=== PATIENT | female | born 1985 | race Caucasian/White ===

== ENCOUNTER 2017-04-24 10:53 | Emergency (ER) | payer BC ==
--- NOTE | 2017-04-24 11:04 | EDM.PDOC ---
ED HPI GENERAL MEDICAL PROBLEM - General Stated Complaint: 8 WEEKS CAN NOT STOP THROWING UP Time Seen by Provider: 04/24/17 10:59 - History of Present Illness INITIAL COMMENTS - FREE TEXT/NARRATIVE: HISTORY AND PHYSICAL: History of present illness: Patient 31-year-old female who is who is approximately 8 weeks presents with a concern of hyperemesis she's had this with all of her pregnancies she has had one visit prior and was prescribed Zofran she is unable keep this down there's been no abdominal pain no vaginal discharge bleeding or other concern Review of systems: As per history of present illness and below otherwise all systems reviewed and negative. Past medical history: As per history of present illness and as reviewed below otherwise noncontributory. Surgical history: As per history of present illness and as reviewed below otherwise noncontributory. Social history: No reported history of drug or alcohol abuse. Family history: As per history of present illness and as reviewed below otherwise noncontributory. Physical exam: HEENT: Atraumatic, normocephalic, pupils reactive, negative for conjunctival pallor or scleral icterus, mucous membranes dry, throat clear, neck supple, nontender, trachea midline. Lungs: Clear to auscultation, breath sounds equal bilaterally, chest nontender. Heart: S1S2, regular, negative for clicks, rubs, or JVD. Abdomen: Soft, nondistended, nontender. Negative for masses or hepatosplenomegaly. Negative for costovertebral tenderness. Pelvis: Stable nontender. Genitourinary: Deferred. Rectal: Deferred. Extremities: Atraumatic, negative for cords or calf pain. Neurovascular unremarkable. Neuro: Awake, alert, oriented. Cranial nerves II through XII unremarkable. Cerebellum unremarkable. Motor and sensory unremarkable throughout. Exam nonfocal. Diagnostics: CBC CMP Therapeutics: Normal saline 1 L bolus Zofran 4 mg IV Impression: #1 hyperemesis gravidarum Definitive disposition and diagnosis as appropriate pending reevaluation and review of above. - Related Data Allergies Allergy/AdvReac Type Severity Reaction Status Date / Time No Known Allergies Allergy Verified 04/24/17 11:01 Home Meds: Home Meds Levothyroxine 75 mcg PO ACBREAKFAST 04/24/17 [History] Social & Family History - Tobacco Use Smoking Status *Q: Never Smoker - Recreational Drug Use Recreational Drug Use: No ED ROS GENERAL - Review of Systems Review Of Systems: ROS reveals no pertinent complaints other than HPI. ED EXAM, GENERAL - Physical Exam Exam: See Below (See dictation) Course - Vital Signs Last Recorded V/S: Last Vital Signs Temp 35.7 C 04/24/17 11:01 Pulse 66 04/24/17 12:20 Resp 18 04/24/17 12:20 BP 99/57 L 04/24/17 12:20 Pulse Ox 100 04/24/17 12:20 - Orders/Labs/Meds Labs: Laboratory Tests 04/24/17 04/24/17 Range/Units 11:12 11:12 WBC 8.61 (4.0-11.0) K/uL RBC 4.99 (4.30-5.90) M/uL Hgb 14.4 (12.0-16.0) g/dL Hct 40.7 (36.0-46.0) % MCV 81.6 (80.0-98.0) fL MCH 28.9 (27.0-32.0) pg MCHC 35.4 (31.0-37.0) g/dL RDW Std Deviation 43.0 (28.0-62.0) fl RDW Coeff of Nataly 15 (11.0-15.0) % Plt Count 248 (150-400) K/uL MPV 10.20 (7.40-12.00) fL Neut % (Auto) 65.9 (48.0-80.0) % Lymph % (Auto) 26.1 (16.0-40.0) % Hernando % (Auto) 7.1 (0.0-15.0) % Eos % (Auto) 0.7 (0.0-7.0) % Baso % (Auto) 0.2 (0.0-1.5) % Neut # (Auto) 5.7 (1.4-5.7) K/uL Lymph # (Auto) 2.3 (0.6-2.4) K/uL Hernando # (Auto) 0.6 (0.0-0.8) K/uL Eos # (Auto) 0.1 (0.0-0.7) K/uL Baso # (Auto) 0.0 (0.0-0.1) K/uL Nucleated RBC % 0.0 /100WBC Nucleated RBCs # 0 K/uL Sodium 136 (136-146) mmol/L Potassium 4.1 (3.5-5.1) mmol/L Chloride 105 (98-110) mmol/L Carbon Dioxide 22 (21-31) mmol/L BUN 15 (6.0-23.0) mg/dL Creatinine 0.9 (0.6-1.5) mg/dL Est Cr Clr Drug Dosing 88.88 mL/min Estimated GFR (MDRD) > 60.0 ml/min Glucose 87 (60-110) mg/dL Calcium 9.3 (8.8-10.8) mg/dL Total Bilirubin 1.2 (0.1-1.5) mg/dL AST 16 (5-40) IU/L ALT 15 (8-54) IU/L Alkaline Phosphatase 57 (40-150) Total Protein 8.0 (6.0-8.0) g/dL Albumin 4.4 (3.5-5.0) g/dL Globulin 3.6 H (2.0-3.5) g/dL Albumin/Globulin Ratio 1.2 L (1.3-2.8) Meds: Medications Discontinued Medications Generic Name Dose Route Start Last Admin Trade Name Freq PRN Reason Stop Dose Admin Sodium Chloride 1,000 mls @ 999 mls/hr 04/24/17 11:07 04/24/17 11:12 Normal Saline IV 04/24/17 12:07 999 mls/hr .Bolus ONE Administration Ondansetron HCl 4 mg 04/24/17 11:07 04/24/17 11:17 Zofran IVPUSH 04/24/17 11:08 4 mg ONETIME ONE Administration Departure - Departure Time of Disposition: 12:00 Disposition: Home, Self-Care 01 Clinical Impression: hyperemesis gravidarum - Discharge Information Instructions: First Trimester of , [id number], Morning Sickness, [id number] Referrals: Maricel Sam [facility] [Ordering Only Provider] - Watson Mar MD [Physician] - Salvador Mason [Primary Care Provider] - Forms: ED Department Discharge
[2017-04-24] MEDS ORDERED: Sodium Chloride 0.9% 1,000 ML IV ONE (11:07)
[2017-04-24] MEDS ORDERED: Ondansetron 4 MG/2 ML SDV IVPUSH ONE (11:07)
[2017-04-24 11:51] LABS: CHLORIDE,CL 105 mmol/L (98-110); SODIUM,NA 136 mmol/L (136-146)
[2017-04-24 12:50] VITALS: BP 99/57
== END 2017-04-24 12:20 | disposition home or self-care (01) ==
LOC: MW.ED 10:53
DX: O21.0 Mild hyperemesis gravidarum (principal); Z3A.01 Less than 8 weeks gestation of pregnancy
CPT/HCPCS: 36415; 80053; 85025; 96361; 96374; 99283; J2405; J7040

== ENCOUNTER 2017-05-22 22:29 | Emergency (ER) | payer BC ==
--- NOTE | 2017-05-22 23:18 | EDM.PDOC ---
ED HPI GENERAL MEDICAL PROBLEM - General Chief Complaint: Back Pain or Injury Stated Complaint: PT HURT BACK AND 12WKS Time Seen by Provider: 05/22/17 23:03 - History of Present Illness INITIAL COMMENTS - FREE TEXT/NARRATIVE: HISTORY AND PHYSICAL: History of present illness: [The patient is a 31-year-old female who is a 4 and is currently 12 weeks and is following with [facility] and presents with pain in her tailbone that started this morning when she woke up. The patient denies any trauma to the area and has been eating passing stool and urinating without difficulty. She has no abdominal pain. The patient has had nausea and vomiting with the which is not new or different. She denies any urinary complaints and no neurosensory changes in her legs or weakness in her legs. She says that because the nausea and vomiting she has not been as active as usual and she thought that maybe because she was laying in bed a lot as may have triggered the pain. She's only been using Tylenol for the pain. The pain does not radiate to her legs and does not go right or left but sits in the middle at her tailbone only. Review of systems: As per history of present illness and below otherwise all systems reviewed and negative. Past medical history: As per history of present illness and as reviewed below otherwise noncontributory. Surgical history: As per history of present illness and as reviewed below otherwise noncontributory. Social history: No reported history of drug or alcohol abuse. Family history: As per history of present illness and as reviewed below otherwise noncontributory. Physical exam: Gen.: Well-developed well-nourished female who moves slowly in the ED but is nontoxic HEENT: Atraumatic, normocephalic, negative for conjunctival pallor or scleral icterus, mucous membranes moist, throat clear, neck supple, nontender, trachea midline. Lungs: Clear to auscultation, breath sounds equal bilaterally, chest nontender. Heart: S1S2, regular, negative for clicks, rubs, or JVD. Abdomen: Soft, nondistended, nontender. Negative for masses or hepatosplenomegaly. Negative for costovertebral tenderness. Pelvis: Stable nontender. Genitourinary: Deferred. Rectal: Formal rectal exam was deferred but the coccyx area was evaluated and there is no evidence of any erythema fluctuance or fullness appreciated at palpation Extremities: Atraumatic, negative for cords or calf pain. Neurovascular unremarkable. Full range of motion without any defects or deficits Neuro: Awake, alert, oriented. Cranial nerves II through XII unremarkable. Cerebellum unremarkable. Motor and sensory unremarkable throughout. Exam nonfocal. Dorsi and plantar flexion is intact 5/5 inclusive of the great toe as his inversion and eversion of the feet. Back: There are no midline step-offs tenderness or defects the thoracic or lumbar spine no CVA tenderness and there is reproducible tenderness at the coccyx area without fullness fluctuance redness or swelling. Diagnostics: [] Therapeutics: Morphine IM I discussed the case with Dr. Mcadams at 16/01/18. She recommends one dose of pain medication, morphine, and her office will follow-up as this may be coccydynia Impression: Coccyx pain and Definitive disposition and diagnosis as appropriate pending reevaluation and review of above. lower mid back/tailbone Pain Score (Numeric/FACES): 6 - Related Data Allergies Allergy/AdvReac Type Severity Reaction Status Date / Time No Known Allergies Allergy Verified 05/22/17 22:42 Home Meds: Home Meds Doxylamine Succinate [Unisom] 25 mg PO 05/22/17 [History] Ondansetron [Zofran ODT] 4 mg PO ASDIRECTED 05/22/17 [History] Past Medical History Cardiovascular History: Reports: None Respiratory History: Reports: None Neurological History: Reports: Migraines Psychiatric History: Reports: None Endocrine/Metabolic History: Reports: Hypothyroidism Dermatologic History: Reports: None - Infectious Disease History Infectious Disease History: Reports: Chicken Pox - Past Surgical History HEENT Surgical History: Reports: Tonsillectomy GI Surgical History: Reports: Cholecystectomy Female Surgical History: Reports: Lithotripsy/ESWL Social & Family History - Family History Family Medical History: Noncontributory - Tobacco Use Smoking Status *Q: Never Smoker - Recreational Drug Use Recreational Drug Use: No ED ROS GENERAL - Review of Systems Review Of Systems: ROS reveals no pertinent complaints other than HPI. ED EXAM, GENERAL - Physical Exam Exam: See Below (See dictation) Course - Vital Signs Last Recorded V/S: Last Vital Signs Temp 36.3 C 05/22/17 22:43 Pulse 86 05/22/17 22:43 Resp 14 05/22/17 22:43 BP 126/71 05/22/17 22:43 Pulse Ox 97 05/22/17 22:43 Departure - Departure Time of Disposition: 23:25 Disposition: Home, Self-Care 01 Condition: Fair Clinical Impression: Coccydynia - Discharge Information Forms: ED Department Discharge Additional Instructions: The following information is given to patients seen in the emergency department who are being discharged to home. This information is to outline your options for follow-up care. We provide all patients seen in our emergency department with a follow-up referral. The need for follow-up, as well as the timing and circumstances, are variable depending upon the specifics of your emergency department visit. If you don't have a primary care physician on staff, we will provide you with a referral. We always advise you to contact your personal physician following an emergency department visit to inform them of the circumstance of the visit and for follow-up with them and/or the need for any referrals to a consulting specialist. The emergency department will also refer you to a specialist when appropriate. This referral assures that you have the opportunity for followup care with a specialist. All of these measure are taken in an effort to provide you with optimal care, which includes your followup. Under all circumstances we always encourage you to contact your private physician who remains a resource for coordinating your care. When calling for followup care, please make the office aware that this follow-up is from your recent emergency room visit. If for any reason you are refused follow-up, please contact the [facility] emergency department at and ask to speak to the emergency department charge nurse. [facility] [address] [place] [id number] Please call the clinic tomorrow to be reevaluated and possibly scheduled for physical therapy. Tinea Tylenol use. Return to ER as needed and as discussed
[2017-05-22] MEDS ORDERED: Morphine 2 MG/ML Syringe IM ONE (23:26)
[2017-05-23 04:54] VITALS: BP 132/73
== END 2017-05-23 00:08 | disposition home or self-care (01) ==
LOC: MW.ED 22:29
DX: O99.89 Other specified diseases and conditions complicating pregnancy, childbirth and the puerperium (principal); M53.3 Sacrococcygeal disorders, not elsewhere classified; E03.9 Hypothyroidism, unspecified; Z90.49 Acquired absence of other specified parts of digestive tract; Z98.890 Other specified postprocedural states; Z3A.12 12 weeks gestation of pregnancy
CPT/HCPCS: 96372; 99283; J2270

== ENCOUNTER 2017-11-29 10:50 | Inpatient (IN) | payer BC ==
[2017-11-29] MEDS ORDERED: Butorphanol 1 MG/ML SDV IVPUSH PRN (11:24)
[2017-11-29] MEDS ORDERED: Sodium Chloride 0.9% 2.5 ML Syringe FLUSH PRN (11:24)
[2017-11-29] MEDS ORDERED: Methylergonovine 0.2 MG/1 ML Amp IM PRN (11:24)
[2017-11-29] MEDS ORDERED: Misoprostol 200 MCG Tab PO PRN (11:24)
[2017-11-29] MEDS ORDERED: Lidocaine 1% 50 ML MDV INJECT PRN (11:24)
[2017-11-29] MEDS ORDERED: Water For Irrigation,Sterile 1,000 ML Container IRR PRN (11:24)
[2017-11-29] MEDS ORDERED: Carboprost Tromethamine 250 MCG/1 ML Amp IM PRN (11:24)
[2017-11-29] MEDS ORDERED: Nalbuphine 10 MG/1 ML Vial IVPUSH PRN (11:24)
[2017-11-29] MEDS ORDERED: Sodium Chloride 0.9% 10 ML Syringe FLUSH PRN (11:24)
[2017-11-29] MEDS ORDERED: Terbutaline 1 MG/ML SDV SUBCUT PRN (11:24)
[2017-11-29] MEDS ORDERED: Oxytocin/0.9 % Sodium Chloride 30 UNIT/500 ML BAG IV SCH ×2 (11:30)
[2017-11-29] MEDS: Lactated Ringers 1,000 ML IV SCH ×2 (11:42→13:59)
[2017-11-29] MEDS ORDERED: fentaNYL 100 MCG/2 ML SDV ONE (13:18)
[2017-11-29] MEDS ORDERED: Ropivacaine 0.2% 2 MG/ML 20 ML SDV ONE (13:18)
--- NOTE | 2017-11-29 13:55 | PCM.PREANE ---
Preanesthetic Assessment - Anesthesia/Transfusion/Family Hx Anesthesia History: Prior Anesthesia Without Reaction Family History of Anesthesia Reaction: No Transfusion History: No Prior Transfusion(s) - Review of Systems General: No Symptoms Pulmonary: No Symptoms Cardiovascular: No Symptoms Gastrointestinal: No Symptoms Neurological: No Symptoms Other: Reports: None - Physical Assessment NPO Status Date: 11/29/17 NPO Status Time: 13:52 (sips/chips) Pulse: 90 Blood Pressure: 127/65 Temperature: 97.9 F Height: 5 ft 7 in Weight: 227 lb ASA Class: 2 Mental Status: Alert & Oriented x3 Airway Class: Mallampati = 2 Dentition: Reports: Normal Dentition Thyro-Mental Finger Breadths: 3 Mouth Opening Finger Breadths: 3 ROM/Head Extension: Full Lungs: Clear to Auscultation, Normal Respiratory Effort Cardiovascular: Regular Rate, Regular Rhythm - Lab Values: Laboratory Last Values WBC 9.30 K/uL (4.0-11.0) 11/29/17 11:38 RBC 4.25 M/uL (4.30-5.90) L 11/29/17 11:38 Hgb 12.8 g/dL (12.0-16.0) 11/29/17 11:38 Hct 36.2 % (36.0-46.0) 11/29/17 11:38 MCV 85.2 fL (80.0-98.0) 11/29/17 11:38 MCH 30.1 pg (27.0-32.0) 11/29/17 11:38 MCHC 35.4 g/dL (31.0-37.0) 11/29/17 11:38 RDW Std Deviation 52.1 fl (28.0-62.0) 11/29/17 11:38 RDW Coeff of Nataly 17 % (11.0-15.0) H 11/29/17 11:38 Plt Count 223 K/uL (150-400) 11/29/17 11:38 MPV 11.00 fL (7.40-12.00) 11/29/17 11:38 Nucleated RBC % 0.0 /100WBC 11/29/17 11:38 Nucleated RBCs # 0 K/uL 11/29/17 11:38 Blood Type O NEGATIVE 11/29/17 11:38 Antibody Screen NEGATIVE 11/29/17 11:38 - Allergies Allergies/Adverse Reactions: Allergies Allergy/AdvReac Type Severity Reaction Status Date / Time No Known Allergies Allergy Verified 11/03/17 14:45 - Blood Blood Available: No - Anesthesia Plan Free Text/Narrative:: Labor Epidural - induction for polyhydramnios - Acknowledgements Anesthesia Type Planned: Epidural Pt an Appropriate Candidate for the Planned Anesthesia: Yes Alternatives and Risks of Anesthesia Discussed w Pt/Guardian: Yes Pt/Guardian Understands and Agrees with Anesthesia Plan: Yes PreAnesthesia Questionnaire Cardiovascular History: Reports: None Respiratory History: Reports: None Genitourinary History: Reports: Renal Calculus 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: Neurological History: Reports: Migraines Psychiatric History: Reports: None Endocrine/Metabolic History: Reports: Hypothyroidism (not currently on medication) Dermatologic History: Reports: None - Infectious Disease History Infectious Disease History: Reports: Chicken Pox - Past Surgical History HEENT Surgical History: Reports: Tonsillectomy GI Surgical History: Reports: Cholecystectomy Female Surgical History: Reports: Lithotripsy/ESWL - SUBSTANCE USE Smoking Status *Q: Never Smoker Recreational Drug Use History: No - HOME MEDS Home Medications: Home Meds Doxylamine Succinate [Unisom] 25 mg PO 05/22/17 [History] Ondansetron [Zofran ODT] 4 mg PO ASDIRECTED 05/22/17 [History] Vit W-Ca,Fe,FA(<1 mg) [ Vitamins] 10/04/17 [History] - CURRENT (IN HOUSE) MEDS Current Meds: Current Medications Butorphanol Tartrate (Stadol) 1 mg IVPUSH Q1H PRN PRN Reason: Pain Carboprost Tromethamine (Hemabate Ds) 250 mcg IM ASDIRECTED PRN PRN Reason: Post Hemorrhage Lactated Ringer's (Ringers, Lactated) 1,000 mls @ 150 mls/hr IV ASDIRECTED BRYNN Last Admin: 11/29/17 11:42 Dose: 150 mls/hr Oxytocin/Sodium Chloride (Oxytocin 30 Unit/500 Ml-Ns) 30 unit in 500 mls @ 2 mls/hr IV TITRATE BRYNN; 2 MUNITS/MIN PRN Reason: Protocol Last Titration: 11/29/17 12:48 Dose: 6 munits/min, 6 mls/hr Oxytocin/Sodium Chloride (Oxytocin 30 Unit/500 Ml-Ns) 30 unit in 500 mls @ 999 mls/hr IV TITRATE BRYNN Lidocaine HCl (Xylocaine 1%) 50 ml INJECT .ONCE PRN PRN Reason: Laceration repair Methylergonovine Maleate (Methergine) 0.2 mg IM ASDIRECTED PRN PRN Reason: Post Hemorrhage Misoprostol (Cytotec) 200 mcg PO .ONCE PRN PRN Reason: Post Hemorrhage Nalbuphine HCl (Nubain) 10 mg IVPUSH Q1H PRN PRN Reason: Pain (severe 7-10) Sodium Chloride (Saline Flush) 10 ml FLUSH ASDIRECTED PRN PRN Reason: Keep Vein Open Sodium Chloride (Saline Flush) 2.5 ml FLUSH ASDIRECTED PRN PRN Reason: Keep Vein Open Sterile Water (Sterile Water For Irrigation) 1,000 ml IRR ASDIRECTED PRN PRN Reason: delivery Terbutaline Sulfate (Brethine) 0.25 mg SUBCUT ASDIRECTED PRN PRN Reason: Tacysystole Discontinued Medications Fentanyl (Sublimaze) Confirm Administered Dose 100 mcg .ROUTE .STK-MED ONE Stop: 11/29/17 13:19 Ropivacaine (Naropin 0.2%) Confirm Administered Dose 20 ml .ROUTE .STK-MED ONE Stop: 11/29/17 13:19
[2017-11-29] MEDS ORDERED: oxyCODONE 5 MG Tab PO PRN (15:32)
[2017-11-29] MEDS ORDERED: Bisacodyl 10 MG Supp RECTAL PRN (15:32)
[2017-11-29] MEDS ORDERED: Witch Hazel Medicated Pads 40/Jar TOP PRN (15:32)
[2017-11-29] MEDS ORDERED: Ibuprofen 400 MG Tab PO PRN (15:32)
[2017-11-29] MEDS ORDERED: Benzocaine/Menthol 20%-0.5% Spray 78 GM Cannister TOP PRN (15:32)
[2017-11-29] MEDS ORDERED: Lanolin 100% Cream 7 GM Tube TOP PRN (15:32)
[2017-11-29] MEDS ORDERED: Ibuprofen 800 MG Tab PO PRN (15:32)
[2017-11-29] MEDS ORDERED: Docusate Sodium 100 MG Cap PO PRN (15:32)
[2017-11-29] MEDS ORDERED: Acetaminophen 500 MG Tab PO PRN ×2 (15:32)
--- NOTE | 2017-11-29 18:09 | PCM48HPAN ---
Post Anesthesia Note - EVALUATION WITHIN 48HRS OF ANESTHETIC Vital Signs in Normal Range: Yes Patient Participated in Evaluation: Yes Respiratory Function Stable: Yes Airway Patent: Yes Cardiovascular Function Stable: Yes Hydration Status Stable: Yes Pain Control Satisfactory: Yes Nausea and Vomiting Control Satisfactory: Yes Mental Status Recovered: Yes - COMMENTS/OBSERVATIONS Free Text/Narrative:: No anesthesia complications
--- NOTE | 2017-11-29 23:47 | OR ---
SURGEON: Anita Wan MD DATE OF PROCEDURE: 11/29/2017 PREOPERATIVE DIAGNOSES: 1. Intrauterine at 39 weeks and 1 day. 2. Polyhydramnios. POSTOPERATIVE DIAGNOSES: 1. Intrauterine at 39 weeks and 1 day. 2. Polyhydramnios. 3. Delivered. PROCEDURE: Spontaneous vaginal delivery. ANESTHESIA: Epidural. ESTIMATED BLOOD LOSS: 200 mL. COMPLICATIONS: None. DISPOSITION: Mother and baby stable in Labor and Delivery room, bonding. FINDINGS: Male infant, 3330grams, score 8 and 9 at 1 and 5 minutes respectively. Grossly normal placenta with 3-vessel cord. Intact perineum. BRIEF HISTORY: Diana is a 31-year-old G4, P3, who was admitted this morning at 39 weeks and 1 day for induction of labor due to polyhydramnios. Routine evaluations/ investigations and surveillance for polyhydramnios were normal. GBS negative. On admission, she was 4 cm dilated, 60% effaced, station -3. Oxytocin infusion was commenced for induction of labor. Two hours later, she was still the same and artificial rupture of membranes was performed with copious amount of clear amniotic fluid noted. She then received epidural for pain management. Within 2 hours of artificial rupture of membranes, she became fully dilated and commenced active pushing. She pushed quite well and over the next 2 contractions brought the baby's head down to a +4 station and was set up for delivery in modified dorsal lithotomy position. PROCEDURE IN DETAIL: She had a spontaneous vaginal delivery of a live male in direct occipital anterior position, clear amniotic fluid at delivery, loose nuchal cord which was easily reduced. Anterior and posterior shoulders and the rest of the baby were delivered without difficulty. Baby was vigorous and cried spontaneously at . The baby was then delivered onto the maternal abdomen with the nursery nurse attending to him. Delayed cord clamping was performed, and the cord was subsequently cut by the father of the baby. With the delivery of the , Oxytocin was converted to titration for active management of third stage of labor. Cord blood and gas samples were obtained. The placenta was then delivered by controlled cord traction appeared to be complete and intact. Vigorous uterine massage was performed, and the uterus was found to be well contracted below the umbilicus. Examination of the perineum revealed no lacerations. The patient tolerated the procedure well. Sponge, instrument, and needle counts were correct at the end of the delivery. ADUMVIV / CECIL /[id number] MTDD
--- NOTE | 2017-11-30 07:43 | PCM.PNPP ---
- General Info Date of Service: 11/30/17 Functional Status: Reports: Pain Controlled, Tolerating Diet, Ambulating, Urinating - Review of Systems General: Denies: Fever, Fatigue, Chills HEENT: Denies: Headaches Pulmonary: Denies: Shortness of Breath, Pleuritic Chest Pain, Cough Cardiovascular: Denies: Chest Pain, Palpitations, Dyspnea on Exertion Gastrointestinal: Denies: Abdominal Pain Genitourinary: Denies: Dysuria, Incontinence, Retention Neurological: Denies: Headache Psychiatric: Denies: Confusion, Depression, Mood Lability, Anxiety - General Info Date of Service: 11/30/17 - Patient Data Vital Signs - Most Recent: Last Vital Signs Temp 36.6 C 11/29/17 13:55 Pulse 90 11/29/17 13:55 Resp BP 127/65 11/29/17 13:55 Pulse Ox Weight - Most Recent: 227 lb I&O - Last 24 Hours: Intake & Output 11/29/17 11/30/17 11/30/17 22:59 06:59 14:59 Intake Total 2 Balance 2 Lab Results - Last 24 Hours: Laboratory Results - last 24 hr 11/28/17 11/29/17 11/29/17 Range/Units 15:16 11:38 11:38 WBC 9.30 (4.0-11.0) K/uL RBC 4.25 L (4.30-5.90) M/uL Hgb 12.8 (12.0-16.0) g/dL Hct 36.2 (36.0-46.0) % MCV 85.2 (80.0-98.0) fL MCH 30.1 (27.0-32.0) pg MCHC 35.4 (31.0-37.0) g/dL RDW Std Deviation 52.1 (28.0-62.0) fl RDW Coeff of Nataly 17 H (11.0-15.0) % Plt Count 223 (150-400) K/uL MPV 11.00 (7.40-12.00) fL Nucleated RBC % 0.0 /100WBC Nucleated RBCs # 0 K/uL Cord ABG pH 7.272 (7.18-7.38) Cord ABG Base Excess -6 (-10--2) Cord VBG pH 7.401 (7.25-7.45) Cord VBG Base Excess -6 (-10--2) Blood Type O NEGATIVE Antibody Screen NEGATIVE Screen (NEGATIVE) RhIG Candidate? Rhogam Indicated 11/29/17 11/30/17 Range/Units 17:23 04:33 WBC (4.0-11.0) K/uL RBC (4.30-5.90) M/uL Hgb 11.1 L (12.0-16.0) g/dL Hct 32.2 L (36.0-46.0) % MCV (80.0-98.0) fL MCH (27.0-32.0) pg MCHC (31.0-37.0) g/dL RDW Std Deviation (28.0-62.0) fl RDW Coeff of Nataly (11.0-15.0) % Plt Count (150-400) K/uL MPV (7.40-12.00) fL Nucleated RBC % /100WBC Nucleated RBCs # K/uL Cord ABG pH (7.18-7.38) Cord ABG Base Excess (-10--2) Cord VBG pH (7.25-7.45) Cord VBG Base Excess (-10--2) Blood Type Antibody Screen Screen NEGATIVE (NEGATIVE) RhIG Candidate? YES Rhogam Indicated YES, BABY RH POS H Med Orders - Current: Current Medications Acetaminophen (Tylenol Extra Strength) 500 mg PO Q4H PRN PRN Reason: Pain Acetaminophen (Tylenol Extra Strength) 1,000 mg PO Q4H PRN PRN Reason: Pain Benzocaine/Menthol (Dermoplast Pain Relief 20%-0.5% [place]) 78 gm TOP ASDIRECTED PRN PRN Reason: Perineal Comfort Measure Bisacodyl (Dulcolax) 10 mg RECTAL .ONCE PRN PRN Reason: Constipation Docusate Sodium (Colace) 100 mg PO BID PRN PRN Reason: Constipation Emollient Ointment (Lansinoh Hpa) 0 gm TOP ASDIRECTED PRN PRN Reason: Sore Nipples Ibuprofen (Motrin) 400 mg PO Q4H PRN PRN Reason: Pain Ibuprofen (Motrin) 800 mg PO Q6H PRN PRN Reason: Pain Oxycodone HCl (Oxycodone) 5 mg PO Q2H PRN PRN Reason: Pain Witch Khal[place] (Tucks) 1 pad TOP ASDIRECTED PRN PRN Reason: comfort care Discontinued Medications Butorphanol Tartrate (Stadol) 1 mg IVPUSH Q1H PRN PRN Reason: Pain Carboprost Tromethamine (Hemabate Ds) 250 mcg IM ASDIRECTED PRN PRN Reason: Post Hemorrhage Fentanyl (Sublimaze) Confirm Administered Dose 100 mcg .ROUTE .[employer] ONE Stop: 11/29/17 13:19 Lactated Ringer's (Ringers, Lactated) 1,000 mls @ 150 mls/hr IV ASDIRECTED BRYNN Last Admin: 11/29/17 13:59 Dose: 999 mls/hr Oxytocin/Sodium Chloride (Oxytocin 30 Unit/500 Ml-Ns) 30 unit in 500 mls @ 2 mls/hr IV TITRATE BRYNN; 2 MUNITS/MIN PRN Reason: Protocol Last Titration: 11/29/17 15:20 Dose: 500 munits/min, 500 mls/hr Oxytocin/Sodium Chloride (Oxytocin 30 Unit/500 Ml-Ns) 30 unit in 500 mls @ 999 mls/hr IV TITRATE BRYNN Lidocaine HCl (Xylocaine 1%) 50 ml INJECT .ONCE PRN PRN Reason: Laceration repair Methylergonovine Maleate (Methergine) 0.2 mg IM ASDIRECTED PRN PRN Reason: Post Hemorrhage Misoprostol (Cytotec) 200 mcg PO .ONCE PRN PRN Reason: Post Hemorrhage Nalbuphine HCl (Nubain) 10 mg IVPUSH Q1H PRN PRN Reason: Pain (severe 7-10) Ropivacaine (Naropin 0.2%) Confirm Administered Dose 20 ml .ROUTE .[employer] ONE Stop: 11/29/17 13:19 Sodium Chloride (Saline Flush) 10 ml FLUSH ASDIRECTED PRN PRN Reason: Keep Vein Open Sodium Chloride (Saline Flush) 2.5 ml FLUSH ASDIRECTED PRN PRN Reason: Keep Vein Open Sterile Water (Sterile Water For Irrigation) 1,000 ml IRR ASDIRECTED PRN PRN Reason: delivery Terbutaline Sulfate (Brethine) 0.25 mg SUBCUT ASDIRECTED PRN PRN Reason: Tacysystole - Interaction Disposition, : [place] in Room with Family Feeding: Bottle Fed Support Person: - Recovery Exam Fundal Tone: Firms with Massage Fundal Level: 1 Fingerbreadths Below Umbilicus Fundal Placement: Midline Lochia Amount: Small Lochia Color: Rubra/Red Perineum Description: Intact, Minimal Bruising/Swelling Episiotomy/Laceration: None Bladder Status: Voiding Urinary Elimination: Voided - Exam General: Alert, Oriented HEENT: Pupils Equal Neck: Supple Lungs: Clear to Auscultation, Normal Respiratory Effort Cardiovascular: Regular Rate, Regular Rhythm GI/Abdominal Exam: Normal Bowel Sounds Extremities: Non-Tender, Pedal Edema Skin: Warm Psy/Mental Status: Alert, Normal Affect, Normal Mood - Problem List & Annotations (1) Vaginal delivery SNOMED Code(s): 553199456 Code(s): O80 - ENCOUNTER FOR FULL-TERM UNCOMPLICATED DELIVERY Status: Acute Current Visit: Yes - Problem List Review Problem List Initiated/Reviewed/Updated: Yes - My Orders Last 24 Hours: My Active Orders 11/29/17 11:24 Bedrest Bathroom Privileges [RC] ASDIRECTED Communication Order [RC] ASDIRECTED Communication Order [RC] ASDIRECTED Heart Tones [RC] CONTINUOUS Non Stress Test [RC] PER UNIT ROUTINE May Shower [RC] ASDIRECTED Notify Provider [RC] PRN Notify Provider [RC] PRN Oxygen Therapy [RC] ASDIRECTED Up ad Lise [RC] ASDIRECTED Vaginal Exam [RC] PRN Vaginal Exam [RC] PRN Vital Signs [RC] PER UNIT ROUTINE Vital Signs [RC] PER UNIT ROUTINE 11/29/17 15:32 Patient Status [ADT] Routine May Shower [RC] ASDIRECTED Up ad Lise [RC] ASDIRECTED Vital Signs [RC] PER UNIT ROUTINE Acetaminophen [Tylenol Extra Strength] 1,000 mg PO Q4H PRN Acetaminophen [Tylenol Extra Strength] 500 mg PO Q4H PRN Benzocaine/Menthol [Dermoplast Pain Relief 20%-0.5% [place]] 78 gm TOP ASDIRECTED PRN Bisacodyl [Dulcolax] 10 mg RECTAL .ONCE PRN Docusate Sodium [Colace] 100 mg PO BID PRN Ibuprofen [Motrin] 400 mg PO Q4H PRN Ibuprofen [Motrin] 800 mg PO Q6H PRN Lanolin [Lansinoh HPA] See Dose Instructions TOP ASDIRECTED PRN Lamine [place] [Tucks] 1 pad TOP ASDIRECTED PRN oxyCODONE 5 mg PO Q2H PRN Assess Lochia [WOMSER] Per Unit Routine Assess Uterine Involution [WOMSER] Per Unit Routine Breast Pump [WOMSER] Per Unit Routine Peripheral IV Discontinue [OM.PC] Routine Resuscitation Status Routine 11/29/17 15:33 Perineal Care [OM.PC] Per Unit Routine 11/29/17 Dinner Regular Diet [DIET] - Assessment Assessment:: PPD 31 s/p , stable and afebrile Clinically stable for discharge today - Plan Plan:: Discharge instructions reviewed Nothing in the vagina for 6 weeks Bleeding and infection precautions reviewed OTC pain meds PRN blues/ depression S/S reviewed- patient to notify physician if any concerns Follow up in clinic in 6 weeks
[2017-11-30 17:10] VITALS: BP 109/77
== END 2017-11-30 17:45 | disposition home or self-care (01) | DRG 560 ==
LOC: MW.OBCHECK 10:50 → MW.OB 11:23 → OBSVTOIN 15:32 → MW.OB 23:36
PROVIDERS: ADMIT Obstetrics & Gynecology; ATTEND Obstetrics & Gynecology
PROC: 10E0XZZ Delivery of Products of Conception, External Approach (ICD-10-PCS; principal; 2017-11-29)
PROC: 3E033VJ Introduction of Other Hormone into Peripheral Vein, Percutaneous Approach (ICD-10-PCS; 2017-11-29)
PROC: 10907ZC Drainage of Amniotic Fluid, Therapeutic from Products of Conception, Via Natural or Artificial Opening (ICD-10-PCS; 2017-11-29)
DX: O40.3XX0 Polyhydramnios, third trimester, not applicable or unspecified (principal); O69.81X0 Labor and delivery complicated by cord around neck, without compression, not applicable or unspecified; Z3A.39 39 weeks gestation of pregnancy; Z37.0 Single live birth
CPT/HCPCS: 36415; 51702; 59025; 59409; 82803; 85014; 85018; 85027; 85460; 86850; 86900; 86901; 88307; J2590; J2790; J2795; J3010; J7120

== ENCOUNTER 2019-12-10 09:54 | Day surgery (SDC) | payer BC ==
[~2019-12-10 09:54] MED LIST: Sodium Chloride 0.9% 10 ML SDV IV PRN; Sodium Chloride 0.9% 10 ML Syringe FLUSH PRN; Sodium Chloride 0.9% 2.5 ML Syringe FLUSH PRN; ceFAZolin 2 GM in Premix Bag 1 BAG IV ONE
[2019-12-10] MEDS ORDERED: Midazolam 1 MG/ML 2 ML SDV ONE (10:49)
[2019-12-10] MEDS ORDERED: fentaNYL 250 MCG/5 ML SDV ONE ×2 (10:49→14:29)
[2019-12-10] MEDS ORDERED: Propofol 200 MG/20 ML SDV ONE (10:49)
[2019-12-10] MEDS ORDERED: Ondansetron 4 MG/2 ML SDV ONE (10:52)
[2019-12-10] MEDS ORDERED: Phenylephrine/Normal Saline 100 MCG/ML 10 ML Syringe ONE (10:52)
[2019-12-10] MEDS ORDERED: Rocuronium 100 MG/10 ML Syringe ONE (10:52)
[2019-12-10] MEDS ORDERED: ePHEDrine 50 MG/ML SDV ONE (10:52)
[2019-12-10] MEDS ORDERED: Dexamethasone 4 MG/ML 5 ML MDV ONE (10:52)
[2019-12-10] MEDS ORDERED: Scopolamine 1.5 MG Transdermal Patch TRDERM PRN (10:56)
--- NOTE | 2019-12-10 10:58 | PCM.PREANE ---
Preanesthetic Assessment - Anesthesia/Transfusion/Family Hx Anesthesia History: Prior Anesthesia Without Reaction Family History of Anesthesia Reaction: No Transfusion History: No Prior Transfusion(s) Intubation History: Unknown - Review of Systems General: No Symptoms Pulmonary: No Symptoms Cardiovascular: No Symptoms Gastrointestinal: No Symptoms Neurological: No Symptoms Other: Reports: None - Physical Assessment Height: 5 ft 7 in Weight: 101.605 kg ASA Class: 2 Mental Status: Alert & Oriented x3 Airway Class: Mallampati = 2 Dentition: Reports: Normal Dentition Thyro-Mental Finger Breadths: 3 Mouth Opening Finger Breadths: 3 ROM/Head Extension: Full Lungs: Clear to Auscultation, Normal Respiratory Effort Cardiovascular: Regular Rate, Regular Rhythm - Allergies Allergies/Adverse Reactions: Allergies Allergy/AdvReac Type Severity Reaction Status Date / Time No Known Allergies Allergy Verified 12/04/19 09:13 - Blood Blood Available: No - Anesthesia Plan Pre-Op Medication Ordered: None - Acknowledgements Anesthesia Type Planned: General Anesthesia Pt an Appropriate Candidate for the Planned Anesthesia: Yes Alternatives and Risks of Anesthesia Discussed w Pt/Guardian: Yes Pt/Guardian Understands and Agrees with Anesthesia Plan: Yes PreAnesthesia Questionnaire HEENT History: Reports: Other (See Below) Other HEENT History: wears glasses Cardiovascular History: Reports: None Respiratory History: Reports: None Gastrointestinal History: Reports: Other (See Below) Other Gastrointestinal History: occasional heartburn Genitourinary History: Reports: Renal Calculus OFFBEARER History: Reports: Endometrial Ablation, Musculoskeletal History: Reports: Fracture Other Musculoskeletal History: hx fx foot Neurological History: Reports: Migraines (occasional) Psychiatric History: Reports: None Endocrine/Metabolic History: Reports: Hypothyroidism, Obesity/BMI 30+ Other Endocrine/Metabolic History: thyroid medication recently discontinued Hematologic History: Reports: None Immunologic History: Reports: None Oncologic (Cancer) History: Reports: None Dermatologic History: Reports: None - Infectious Disease History Infectious Disease History: Reports: Chicken Pox - Past Surgical History Head Surgeries/Procedures: Reports: None HEENT Surgical History: Reports: Adenoidectomy, Oral Surgery, Tonsillectomy Cardiovascular Surgical History: Reports: None Respiratory Surgical History: Reports: None GI Surgical History: Reports: Cholecystectomy, Colonoscopy (3 weeks ago) Female Surgical History: Reports: Endometrial Ablation, Lithotripsy/ESWL Other Female Surgeries/Procedures: hx hysteroscopy with endometrial ablation Endocrine Surgical History: Reports: None Neurological Surgical History: Reports: None Musculoskeletal Surgical History: Reports: None Oncologic Surgical History: Reports: None Dermatological Surgical History: Reports: None - SUBSTANCE USE Smoking Status *Q: Never Smoker Recreational Drug Use History: No - HOME MEDS Home Medications: Home Meds Calcium Carbonate [Tums] 1 tab.chew CHEW ASDIRECTED PRN 12/04/19 [History] - CURRENT (IN HOUSE) MEDS Current Meds: Current Medications Sodium Chloride (Saline Flush) 10 ml FLUSH ASDIRECTED PRN PRN Reason: Keep Vein Open Sodium Chloride (Saline Flush) 2.5 ml FLUSH ASDIRECTED PRN PRN Reason: Keep Vein Open Sodium Chloride (Normal Saline) 10 ml IV ASDIRECTED PRN PRN Reason: IV Use Discontinued Medications Dexamethasone (Dexamethasone) Confirm Administered Dose 20 mg .ROUTE .STK-MED ONE Stop: 12/10/19 10:53 Ephedrine Sulfate (Ephedrine Sulfate) Confirm Administered Dose 50 mg .ROUTE .STK-MED ONE Stop: 12/10/19 10:53 Fentanyl (Sublimaze) Confirm Administered Dose 250 mcg .ROUTE .STK-MED ONE Stop: 12/10/19 10:50 Cefazolin Sodium/Dextrose 2 gm (/ Premix) 50 mls @ 100 mls/hr IV ONETIME ONE Stop: 12/10/19 03:14 Midazolam HCl (Versed 1 Mg/Ml) Confirm Administered Dose 2 mg .ROUTE .STK-MED ONE Stop: 12/10/19 10:50 Ondansetron HCl (Zofran) Confirm Administered Dose 4 mg .ROUTE .STK-MED ONE Stop: 12/10/19 10:53 Phenylephrine HCl (Phenylephrine In Ns 100 Mcg/Ml) Confirm Administered Dose 1 mg .ROUTE .STK-MED ONE Stop: 12/10/19 10:53 Propofol (Diprivan 20 Ml) Confirm Administered Dose 200 mg .ROUTE .STK-MED ONE Stop: 12/10/19 10:50 Rocuronium [place] (Zemuron) Confirm Administered Dose 100 mg .ROUTE .STK-MED ONE Stop: 12/10/19 10:53 Succinylcholine Chloride (Succinylcholine Chloride) Confirm Administered Dose 200 mg .ROUTE .STK-MED ONE Stop: 12/10/19 10:53
[2019-12-10] MEDS ORDERED: Fluorescein 5 ML Vial ONE (11:12)
[2019-12-10] MEDS ORDERED: Lidocaine 1% with EPINEPHrine 1:100,000 20 ML MDV ONE (11:13)
[2019-12-10] MEDS ORDERED: Neomycin/Polymyxin B Bladder Irrigation 1 ML Amp ONE (11:14)
[2019-12-10] MEDS: Lactated Ringers 1,000 ML IV SCH ×2 (11:30→20:39)
[2019-12-10 11:35] LABS: BLOOD UREA NITROGEN,BUN 14 mg/dL (7.0-18.0); CARBON DIOXIDE,CO2 26.9 mmol/L (21.0-32.0); CHLORIDE,CL 107 mmol/L (98-107); GLUCOSE RANDOM 92 mg/dL (74-106); SODIUM,NA 143 mmol/L (136-145)
[2019-12-10] MEDS ORDERED: Furosemide 40 MG/4 ML VIAL ONE (11:37)
[2019-12-10] MEDS ORDERED: Bupivacaine 0.25% 10 ML SDV ONE (11:38)
[2019-12-10] MEDS ORDERED: ceFAZolin/Dextrose,Iso-Osmotic 2 GM/50 ML Duplex Bag IV ONE (13:01)
[2019-12-10] MEDS ORDERED: Albuterol 0.083% 2.5 MG/3 ML Neb Soln NEB PRN (13:28)
[2019-12-10] MEDS ORDERED: Atropine 0.1 MG/ML 10 ML Syringe IVPUSH PRN ×2 (13:28)
[2019-12-10] MEDS ORDERED: Naloxone 0.4 MG/ML Syringe IVPUSH PRN (13:28)
[2019-12-10] MEDS ORDERED: fentaNYL 100 MCG/2 ML SDV IVPUSH PRN (13:28)
[2019-12-10] MEDS ORDERED: EPINEPHrine 1:10,000 1 MG/10 ML Syringe IVPUSH PRN (13:28)
[2019-12-10] MEDS ORDERED: 50% Dextrose in Water 50 ML Syringe IVPUSH PRN (13:28)
[2019-12-10] MEDS ORDERED: Ketorolac 30 MG/ML SDV ONE (14:07)
[2019-12-10] MEDS ORDERED: Glycopyrrolate 0.2 MG/ML SDV ONE (14:07)
[2019-12-10] MEDS ORDERED: Neostigmine Methylsulfate 1 MG/ML 5 ML Syringe ONE (14:07)
[2019-12-10] MEDS ORDERED: Sugammadex Sodium 200 MG/2 ML VIAL ONE (14:25)
[2019-12-10] MEDS ORDERED: HYDROmorphone 2 MG/ML Syringe ONE (15:08)
[2019-12-10] MEDS ORDERED: Octyl 2-Cyanoacrylate 1 Tube ONE (15:13)
[2019-12-10] MEDS ORDERED: Promethazine 25 MG/ML SDV IM PRN (15:24)
[2019-12-10] MEDS ORDERED: Ondansetron 4 MG/2 ML SDV IVPUSH PRN (15:24)
[2019-12-10] MEDS ORDERED: Acetaminophen/oxyCODONE 325-5 MG Tab PO PRN ×2 (15:24)
[2019-12-10] MEDS ORDERED: Acetaminophen 1,000 MG in Premix Bag 1 BAG IV PRN (16:08)
--- NOTE | 2019-12-10 16:32 | PCM.POSTAN ---
POST ANESTHESIA ASSESSMENT - VITAL SIGNS Vital Signs: Last Vital Signs Temp 36.3 C 12/10/19 15:31 Pulse 68 12/10/19 16:26 Resp 15 12/10/19 16:26 BP 109/60 12/10/19 16:26 Pulse Ox 97 12/10/19 16:26 - RESPIRATORY Respiratory Status: Respiratory Rate WNL - CARDIOVASCULAR CV Status: Pulse Rate WNL - GASTROINTESTINAL GI Status: No Symptoms - POST OP HYDRATION Hydration Status: Adequate & Stable
[2019-12-10] MEDS: Morphine 4 MG/ML Syringe IVPUSH PRN ×2 (17:14→22:50)
[2019-12-10] MEDS ORDERED: Ketorolac 30 MG/ML SDV IVPUSH SCH ×2 (18:30→21:30)
[2019-12-10] MEDS: Acetaminophen/HYDROcodone 108-2.5 MG/5 ML Soln 15 ML UD Cup PO PRN (19:56)
--- NOTE | 2019-12-11 03:18 | OR ---
SURGEON: Gal Richards MD DATE OF PROCEDURE: 12/10/2019 INDICATION FOR PROCEDURE: A 33-year-old female with history of menorrhalgia and stress incontinence, presenting for scheduled surgery. The patient previously had endometrial ablation and continued to have persistent irregular bleeding after the procedure. She had tubal ligation and does not desire to use hormonal contraceptives. Additionally, she has cystocele with symptomatic stress incontinence that was confirmed in the office with simple cystometry. After reviewing management options, she desires surgical management of these issues. PREOPERATIVE DIAGNOSES: 1. Abnormal uterine bleeding. 2. Stress incontinence. 3. Stage II cystocele. POSTOPERATIVE DIAGNOSES: 1. Abnormal uterine bleeding. 2. Stress incontinence. 3. Stage II cystocele. PROCEDURE PERFORMED: Total vaginal hysterectomy, anterior colporrhaphy, transobturator vaginal taping , and cystoscopy. ANESTHESIA: General anesthesia. ANESTHESIOLOGIST: Dr. Elias Agarwal. FINDINGS: Normal-appearing uterus, bilateral fallopian tubes and ovaries. Normal-appearing cervix and vagina with a stage II cystocele. Cystoscopy showed normal-appearing bladder without any injury. Bilateral ureteral jets were observed. DESCRIPTION OF THE PROCEDURE: Procedure was discussed with the patient in detail. Risks and complications including bleeding, infection, DVTs, injury to surrounding organs including bowel, ureter, and bladder were discussed with the patient. She expressed understanding. Questions answered and consent was signed. The patient was brought to the operating room. General anesthesia was applied without issue. Ancef 2 g IV was given. She was placed in dorsal lithotomy position with her legs supported using stirrups. She was prepped in the usual fashion with Betadine. Lima catheter was placed in the bladder. A weighted speculum was placed in the posterior vagina. Stage 2 cystocele was noted. The cervix was normal appearing. The uterus was normal size, anteverted, and mobile. No adnexal masses were felt. The anterior lip of the cervix was grasped with a Billy clamp. A circumferential incision was made at the cervicovaginal junction with cautery. Vaginal mucosa was then bluntly dissected away from the cervix anteriorly and posteriorly. With upward traction, the posterior peritoneum was visualized and grasped with forceps, then incised with Metzenbaum scissors. Intraperitoneal location was confirmed digitally. A long gooseneck speculum was then placed in the cul-de-sac. Anteriorly, the peritoneum was also identified and entered with Metzenbaum scissors and bluntly opened. The uterosacral ligaments were palpated, clamped with Ani clamps, and suture ligated with 2-0 Vicryl bilaterally. The sutures were held with Fern clamps. The cardinal ligament was then clamped and ligated bilaterally in similar fashion. The uterine arteries were clamped and ligated. Additional bites were taken along the side of the uterus along the broad ligament. A straight angle clamp was used to sweep along the cornua and fallopian tube, the tubo-ovarian vessel was then clamped across with Ani clamps, then suture and ligated. The uterus was freed from the attachment and removed. The pedicles were then carefully examined. Some bleeding was noted along the right tubo-ovarian pedicle. A free tie was passed and used to tie down proximally along the pedicle, which achieved hemostasis. A small area of bleeding was also noted along the right corner of the cuff. A [id number] was placed with 2-0 Vicryl and hemostasis was confirmed. The uterosacral stitch was then sutured to the lateral corners of the vaginal cuff to provide support. Attention was then turned to the cystocele repair. 10 mL of saline was infiltrated under the anterior vaginal mucosa at the midline extending from the vaginal cuff to 3 cm under the urethra. Allis clamps were placed below the urethra and a centimeter lateral to the midline along the vaginal cuff. An midline incision was made vertically along the vaginal mucosa. Allis clamps were used to grasp the edges and Metzenbaum scissors were used to dissect the mucosa off the cystocele. Dissection was performed until the lateral fascia was seen. 2-0 Vicryl was used to place interrupted mattress sutures to bring the lateral fascia together at the midline and reduce the bladder. The bladder was noted to be adequately supported. 0.5 centimeter on each side of vaginal mucosa was excised. The vagina mucosa and cuff was then closed with a running locked 0 Vicryl suture. Cystoscopy was then performed. The Lima catheter was removed, and a 30-degree cystoscope was placed in the bladder. The bladder was filled about 200 mL of saline. The bladder was intact and normal appearing with no evidence of trauma or injury. Bilateral ureteral jets were visualized with fluorescein. The bladder was then drained. Attention was then turned to the TOT sling. Allis clamp was placed a centimeter below the urethra. Local injection with lidocaine and Marcaine was used to infiltrate below the urethra and extending towards the obturator foramen, as well as at the groin incision site. A 2 cm incision was made vertically under the urethra. The periurethral tissue was carefully dissected with Metzenbaum scissors and bluntly towards the ishiopubic ramus on either side until the pubic bone was palpated digitally. The groin incisions was made at the level of the clitoris at the insertion of the adductor longus tendon bilaterally. The Obtryx TOT trocar was inserted at the groin incision and gently guided behind the ishiopubic ramus and past the obturator foramen until it was palpated in the vaginal incision. It was then brought out under the urethra. The vaginal mucosa was carefully examined and there was no perforation noted. The mesh was attached to the tip of the needle and brought out through the groin incision. The mesh was confirmed to be in proper position and not twisted. The same procedure was performed on the opposite side and the mesh was brought out through the groin incision. The mesh was then carefully tightened on both sides. An Allis clamp was used to make sure there was adequate space beneath the urethra and the mesh. The bladder was filled with 260 mL of saline. The catheter was then removed, and Valsalva was performed as well as suprapubic pressure, and no incontinence was observed. The bladder was then emptied. The plastic sheath was removed from the groin incision. The mesh was trimmed. The vaginal mucosa was closed with a running locking 2-0 Vicryl suture. Hemostasis was confirmed at the end of procedure. The groin incisions were closed with Dermabond. Sponge, needle, and instrument counts were correct. The patient was awoken from anesthesia in stable condition and brought to the recovery room. ERIKA JACOB /[id number] MELVI
[2019-12-11] MEDS: Acetaminophen/HYDROcodone 108-2.5 MG/5 ML Soln 15 ML UD Cup PO PRN ×2 (03:59→08:06)
[2019-12-11 06:37] LABS: CARBON DIOXIDE,CO2 25.5 mmol/L (21.0-32.0); POTASSIUM,K 4.5 mmol/L (3.5-5.1)
--- NOTE | 2019-12-11 07:40 | PCM48HPAN ---
Post Anesthesia Note - EVALUATION WITHIN 48HRS OF ANESTHETIC Vital Signs in Normal Range: Yes Patient Participated in Evaluation: Yes Respiratory Function Stable: Yes Airway Patent: Yes Cardiovascular Function Stable: Yes Hydration Status Stable: Yes Pain Control Satisfactory: Yes Nausea and Vomiting Control Satisfactory: Yes Mental Status Recovered: Yes Vital Signs: Last Vital Signs Temp 36.6 C 12/11/19 03:54 Pulse 86 12/11/19 03:54 Resp 16 12/11/19 03:54 BP 115/64 12/11/19 03:54 Pulse Ox 94 L 12/11/19 03:54
[2019-12-11 07:48] VITALS: BP 100/62; PULSE 78
--- NOTE | 2019-12-11 08:56 | PCM.PN ---
- General Info Date of Service: 12/11/19 Functional Status: Reports: Pain Controlled, Tolerating Diet, Ambulating, Other (Distillation voiding trial, had output of 300cc with some blood clots. Had light vaginal bleeding otherwise.) - Review of Systems General: Reports: No Symptoms HEENT: Reports: No Symptoms Pulmonary: Reports: No Symptoms Cardiovascular: Reports: No Symptoms Gastrointestinal: Reports: No Symptoms Genitourinary: Reports: Pain Musculoskeletal: Reports: No Symptoms Skin: Reports: No Symptoms Neurological: Reports: No Symptoms Psychiatric: Reports: No Symptoms - Patient Data Vitals - Most Recent: Last Vital Signs Temp 37.1 C 12/11/19 07:48 Pulse 78 12/11/19 07:48 Resp 17 12/11/19 07:48 BP 100/62 12/11/19 07:48 Pulse Ox 96 12/11/19 07:48 Weight - Most Recent: 224 lb I&O - Last 24 Hours: Intake & Output 12/10/19 12/11/19 12/11/19 22:59 06:59 14:59 Intake Total 2359 1557 Output Total 325 1450 Balance 2034 107 Lab Results Last 24 Hours: Laboratory Results - last 24 hr 12/10/19 12/10/19 12/10/19 Range/Units 10:55 10:55 10:55 WBC 6.26 (4.0-11.0) K/uL RBC 4.52 (4.30-5.90) M/uL Hgb 13.0 (12.0-16.0) g/dL Hct 38.1 (36.0-46.0) % MCV 84.3 (80.0-98.0) fL MCH 28.8 (27.0-32.0) pg MCHC 34.1 (31.0-37.0) g/dL RDW Std Deviation 47.9 (28.0-62.0) fl RDW Coeff of Nataly 16 H (11.0-15.0) % Plt Count 241 (150-400) K/uL MPV 10.10 (7.40-12.00) fL Neut % (Auto) (48.0-80.0) % Lymph % (Auto) (16.0-40.0) % Tyrrell % (Auto) (0.0-15.0) % Eos % (Auto) (0.0-7.0) % Baso % (Auto) (0.0-1.5) % Neut # (Auto) (1.4-5.7) K/uL Lymph # (Auto) (0.6-2.4) K/uL [place]rell # (Auto) (0.0-0.8) K/uL Eos # (Auto) (0.0-0.7) K/uL Baso # (Auto) (0.0-0.1) K/uL Nucleated RBC % 0.0 /100WBC Nucleated RBCs # 0 K/uL Sodium 143 (136-145) mmol/L Potassium 4.0 (3.5-5.1) mmol/L Chloride 107 (98-107) mmol/L Carbon Dioxide 26.9 (21.0-32.0) mmol/L BUN 14 (7.0-18.0) mg/dL Creatinine 0.9 (0.6-1.0) mg/dL Est Cr Clr Drug Dosing 87.27 mL/min Estimated GFR (MDRD) > 60.0 ml/min Glucose 92 (74-106) mg/dL Calcium 8.9 (8.5-10.1) mg/dL Total Bilirubin (0.2-1.0) mg/dL AST (15-37) IU/L ALT (14-63) IU/L Alkaline Phosphatase (46-116) U/L Total Protein (6.4-8.2) g/dL Albumin (3.4-5.0) g/dL Globulin (2.6-4.0) g/dL Albumin/Globulin Ratio (0.9-1.6) HCG, Qual (NEG) Blood Type O NEGATIVE Antibody Screen NEGATIVE 12/10/19 12/11/19 12/11/19 Range/Units 10:55 05:58 05:58 WBC 13.85 H (4.0-11.0) K/uL RBC 4.12 L (4.30-5.90) M/uL Hgb 11.7 L (12.0-16.0) g/dL Hct 34.4 L (36.0-46.0) % MCV 83.5 (80.0-98.0) fL MCH 28.4 (27.0-32.0) pg MCHC 34.0 (31.0-37.0) g/dL RDW Std Deviation 46.1 (28.0-62.0) fl RDW Coeff of Nataly 15 (11.0-15.0) % Plt Count 328 (150-400) K/uL MPV 10.50 (7.40-12.00) fL Neut % (Auto) 85.1 H (48.0-80.0) % Lymph % (Auto) 8.7 L (16.0-40.0) % Tyrrell % (Auto) 6.2 (0.0-15.0) % Eos % (Auto) 0.0 (0.0-7.0) % Baso % (Auto) 0.0 (0.0-1.5) % Neut # (Auto) 11.8 H (1.4-5.7) K/uL Lymph # (Auto) 1.2 (0.6-2.4) K/uL [place] # (Auto) 0.9 H (0.0-0.8) K/uL Eos # (Auto) 0.0 (0.0-0.7) K/uL Baso # (Auto) 0.0 (0.0-0.1) K/uL Nucleated RBC % 0.0 /100WBC Nucleated RBCs # 0 K/uL Sodium 141 (136-145) mmol/L Potassium 4.5 (3.5-5.1) mmol/L Chloride 106 (98-107) mmol/L Carbon Dioxide 25.5 (21.0-32.0) mmol/L BUN 15 (7.0-18.0) mg/dL Creatinine 1.2 H (0.6-1.0) mg/dL Est Cr Clr Drug Dosing 65.45 mL/min Estimated GFR (MDRD) 52.1 ml/min Glucose 145 H (74-106) mg/dL Calcium 8.2 L (8.5-10.1) mg/dL Total Bilirubin 0.8 (0.2-1.0) mg/dL AST 15 (15-37) IU/L ALT 27 (14-63) IU/L Alkaline Phosphatase 53 (46-116) U/L Total Protein 7.0 (6.4-8.2) g/dL Albumin 3.6 (3.4-5.0) g/dL Globulin 3.4 (2.6-4.0) g/dL Albumin/Globulin Ratio 1.1 (0.9-1.6) HCG, Qual NEGATIVE (NEG) Blood Type Antibody Screen Med Orders - Current: Current Medications Hydrocodone Bitart/Acetaminophen (Acetaminophen/Hydrocodone 108-2.5 Mg/5 Ml) 15 ml PO Q4H PRN PRN Reason: Pain Last Admin: 12/11/19 08:06 Dose: 15 ml Lactated Ringer's (Ringers, Lactated) 1,000 mls @ 100 mls/hr IV ASDIRECTED BRYNN Last Admin: 12/10/19 20:39 Dose: 100 mls/hr Morphine Sulfate (Morphine) 4 mg IVPUSH Q2H PRN PRN Reason: Pain (severe 7-10) Last Admin: 12/10/19 22:50 Dose: 4 mg Ondansetron HCl (Zofran) 4 mg IVPUSH Q6H PRN PRN Reason: Nausea/Vomiting Last Admin: 12/10/19 17:14 Dose: 4 mg Oxycodone/Acetaminophen (Percocet 325-5 Mg) 1 tab PO Q4H PRN PRN Reason: Pain (moderate 4-6) Oxycodone/Acetaminophen (Percocet 325-5 Mg) 2 tab PO Q4H PRN PRN Reason: Pain (moderate 4-6) Promethazine HCl (Phenergan) 25 mg IM Q6H PRN PRN Reason: Nausea/Vomiting Scopolamine (Transderm-Scop) 1.5 mg TRDERM Q72H PRN PRN Reason: Nausea Last Admin: 12/10/19 11:40 Dose: 1.5 mg Sodium Chloride (Saline Flush) 10 ml FLUSH ASDIRECTED PRN PRN Reason: Keep Vein Open Sodium Chloride (Saline Flush) 2.5 ml FLUSH ASDIRECTED PRN PRN Reason: Keep Vein Open Sodium Chloride (Normal Saline) 10 ml IV ASDIRECTED PRN PRN Reason: IV Use Discontinued Medications Albuterol (Proventil Neb Soln) 2.5 mg NEB ONETIME PRN PRN Reason: Wheezing Atropine Sulfate (Atropine 0.1 Mg/Ml) 0.5 mg IVPUSH ASDIRECTED PRN PRN Reason: Hypo-perfusion Stop: 12/10/19 13:28 Atropine Sulfate (Atropine 0.1 Mg/Ml) 1 mg IVPUSH ASDIRECTED PRN PRN Reason: Hypo-Perfusion Bupivacaine HCl (Sensorcaine-Mpf 0.25%) Confirm Administered Dose 20 ml .ROUTE .STK-MED ONE Stop: 12/10/19 11:39 Cefazolin Sodium/Dextrose (Ancef) Confirm Administered Dose 2 gm IV .STK-MED ONE Stop: 12/10/19 13:02 Dexamethasone (Dexamethasone) Confirm Administered Dose 20 mg .ROUTE .STK-MED ONE Stop: 12/10/19 10:53 Dextrose/Water (Dextrose 50% In Water) 50 ml IVPUSH ASDIRECTED PRN PRN Reason: Hypoglycemia Ephedrine Sulfate (Ephedrine Sulfate) Confirm Administered Dose 50 mg .ROUTE .STK-MED ONE Stop: 12/10/19 10:53 Epinephrine HCl (Epinephrine 1:10,000) 1 mg IVPUSH ASDIRECTED PRN PRN Reason: ACLS Guidelines Fentanyl (Sublimaze) Confirm Administered Dose 250 mcg .ROUTE .STK-MED ONE Stop: 12/10/19 10:50 Fentanyl (Sublimaze) 50 mcg IVPUSH Q5M PRN PRN Reason: Pain Fentanyl (Sublimaze) Confirm Administered Dose 250 mcg .ROUTE .STK-MED ONE Stop: 12/10/19 14:30 Fluorescein Sodium (Ak-Fluor) Confirm Administered Dose 5 ml .ROUTE .STK-MED ONE Stop: 12/10/19 11:13 Furosemide (Lasix) Confirm Administered Dose 40 mg .ROUTE .STK-MED ONE Stop: 12/10/19 11:38 Glycopyrrolate (Robinul) Confirm Administered Dose 0.4 mg .ROUTE .STK-MED ONE Stop: 12/10/19 14:08 Hydromorphone HCl (Dilaudid) Confirm Administered Dose 2 mg .ROUTE .STK-MED ONE Stop: 12/10/19 15:09 Cefazolin Sodium/Dextrose 2 gm (/ Premix) 50 mls @ 100 mls/hr IV ONETIME ONE Stop: 12/10/19 03:14 Last Admin: 12/10/19 17:19 Dose: Not Given Acetaminophen 1,000 mg/ Premix 100 mls @ 400 mls/hr IV ONETIME PRN PRN Reason: Pain Last Admin: 12/10/19 16:14 Dose: 400 mls/hr Acetaminophen (Ofirmev) Confirm Administered Dose 100 mls @ as directed .ROUTE .STK-MED ONE Stop: 12/10/19 16:10 Ketorolac Tromethamine (Toradol) Confirm Administered Dose 30 mg .ROUTE .ST- MED ONE Stop: 12/10/19 14:08 Ketorolac Tromethamine (Toradol) 30 mg IVPUSH Q6H [facility] Stop: 12/10/19 21:31 Last Admin: 12/10/19 20:34 Dose: 30 mg Ketorolac Tromethamine (Toradol) 30 mg IVPUSH Q6H [facility] Stop: 12/11/19 06:31 Last Admin: 12/10/19 18:36 Dose: 30 mg Lidocaine/Epinephrine (Xylocaine 1% With Epinephrine 1:100,000) Confirm Administered Dose 20 ml .ROUTE .ST-MED ONE Stop: 12/10/19 11:14 Midazolam HCl (Versed 1 Mg/Ml) Confirm Administered Dose 2 mg .ROUTE .ST-MED ONE Stop: 12/10/19 10:50 Naloxone HCl (Narcan) 0.1 mg IVPUSH ASDIRECTED PRN PRN Reason: Respiratory Depression Neomycin/Polymyxin (Neosporin Gu Irrigant) Confirm Administered Dose 1 ml .ROUTE .ST-MED ONE Stop: 12/10/19 11:15 Neostigmine Methylsulfate (Neostigmine) Confirm Administered Dose 5 mg .ROUTE .STK-MED ONE Stop: 12/10/19 14:08 Octyl Cyanoacrylate (Dermabond Advance) Confirm Administered Dose 1 applic .ROUTE .ST-MED ONE Stop: 12/10/19 15:14 Ondansetron HCl (Zofran) Confirm Administered Dose 4 mg .ROUTE .ST-MED ONE Stop: 12/10/19 10:53 Phenylephrine HCl (Phenylephrine In Ns 100 Mcg/Ml) Confirm Administered Dose 1 mg .ROUTE .ST-MED ONE Stop: 12/10/19 10:53 Propofol (Diprivan 20 Ml) Confirm Administered Dose 200 mg .ROUTE .ST-MED ONE Stop: 12/10/19 10:50 Rocuronium [place] (Zemuron) Confirm Administered Dose 100 mg .ROUTE .ST-MED ONE Stop: 12/10/19 10:53 Succinylcholine Chloride (Succinylcholine Chloride) Confirm Administered Dose 200 mg .ROUTE .STK-MED ONE Stop: 12/10/19 10:53 Sugammadex Sodium (Bridion) Confirm Administered Dose 200 mg .ROUTE .STK-MED ONE Stop: 12/10/19 14:26 - Exam General: Alert, Oriented, Cooperative, No Acute Distress HEENT: Pupils Equal, Pupils Reactive, EOMI Neck: Supple, Trachea Midline, No JVD Lungs: Clear to Auscultation, Normal Respiratory Effort Cardiovascular: Regular Rate, Regular Rhythm, No Murmurs GI/Abdominal Exam: Soft, Non-Tender, No Organomegaly, No Distention (Female) Exam: Normal External Exam Back Exam: Normal Inspection, Full Range of Motion Extremities: Normal Inspection, Normal Range of Motion, Non-Tender, No Pedal Edema Skin: Warm, Dry, Intact Neurological: No New Focal Deficit Psy/Mental Status: Alert, Normal Affect, Normal Mood Sepsis Event Note - Evaluation Sepsis Screening Result: No Definite Risk - Focused Exam Vital Signs: Vital Signs Temp Pulse Resp BP Pulse Ox 12/11/19 07:48 37.1 C 78 17 100/62 96 12/11/19 03:54 36.6 C 86 16 115/64 94 L 12/10/19 23:01 36.6 C 77 14 119/69 94 L Date Exam was Performed: 12/11/19 Time Exam was Performed: 08:52 - Problem List Review Problem List Initiated/Reviewed/Updated: Yes - My Orders Last 24 Hours: My Active Orders 12/10/19 15:24 Patient Status [ADT] Routine Antiembolic Devices [RC] PER UNIT ROUTINE Notify Provider Intake and Out [RC] Q12H Notify Provider Vital Signs [RC] Q12H Oxygen Therapy [RC] ASDIRECTED Up With Assistance [RC] PER UNIT ROUTINE Up ad Lise [RC] PER UNIT ROUTINE Vital Signs [RC] PER UNIT ROUTINE Acetaminophen/oxyCODONE [Percocet 325-5 MG] 1 tab PO Q4H PRN Acetaminophen/oxyCODONE [Percocet 325-5 MG] 2 tab PO Q4H PRN Morphine 4 mg IVPUSH Q2H PRN Ondansetron [Zofran] 4 mg IVPUSH Q6H PRN Promethazine [Phenergan] 25 mg IM Q6H PRN Peripheral IV Discontinue [OM.PC] Routine Sequential Compression Device [OM.PC] Per Unit Routine Resuscitation Status Routine 12/10/19 18:19 Acetaminophen/HYDROcodone [Acetaminophen/HYDROcodone 108-2.5 MG/5 ML] 15 ml PO Q4H PRN 12/10/19 Dinner Regular Diet [DIET] 12/11/19 08:45 Ready for Discharge [RC] PER UNIT ROUTINE - Assessment Assessment:: 33yo POD1 s/p TVH, cystocele repair, TOT sling and cystoscopy. Stable and recovering well. - Plan Plan:: VSS Hgb 11.7, small amount of vaginal bleeding. No s/s of anemia Voiding trial did not show urinary retention [place], tylenol and motrin for pain Stable for discharge home, reviewed precautions. Follow up in 2 weeks.
== END 2019-12-11 09:00 | disposition home or self-care (01) ==
LOC: MW.SDS 09:54 → MW.MS 16:42 → MW.SDS 12-11 09:00
PROVIDERS: ATTEND Obstetrics & Gynecology
DX: N72 Inflammatory disease of cervix uteri (principal); N39.3 Stress incontinence (female) (male); N81.10 Cystocele, unspecified; E03.9 Hypothyroidism, unspecified; E66.9 Obesity, unspecified; Z68.35 Body mass index [BMI] 35.0-35.9, adult; Z98.890 Other specified postprocedural states; Z98.51 Tubal ligation status; Z79.899 Other long term (current) drug therapy
CPT/HCPCS: 36415; 57240; 57288; 58260; 80048; 80053; 84703; 85025; 85027; 86850; 86900; 86901; 88304; 88307; A9270; C1771; J0131; J0330; J0690; J1100; J1170; J1885; J1940; J2250; J2270; J2370; J2405; J2704; J3010; J3490; J7120